=== PATIENT | male | born 1960 | race Caucasian/White ===

== ENCOUNTER → 2018-06-04 10:00 | Outpatient (CLI) | payer OTHER, SELFPAY ==
--- NOTE | 2018-06-04 10:45 | MRI_ITS ---
STUDY: MRI RIGHT SHOULDER REASON FOR EXAM: Right shoulder pain and decreased range of motion for 4 weeks, fall. TECHNIQUE: Standardized fat and water weighted pulse sequences were obtained in all 3 orthogonal planes. COMPARISON: None. FINDINGS: There is supraspinatus tendinosis and a full-thickness tear of the distal anterior supraspinatus tendon (T2 coronal images 12-14) measuring approximately 2.0 x 1.3 cm (length x width). There is mild infraspinatus tendinosis (T2 coronal image 7) without discrete tendon tear. There is a full-thickness tear of the subscapularis tendon (proton-density axial images 16, 17). Normal teres minor tendon. Normal supraspinatus muscle. Normal infraspinatus muscle. Normal subscapularis muscle. Normal teres minor muscle. There is a small glenohumeral joint effusion. There is a small cyst in the posterior aspect of the greater tuberosity. There is a tear with nonvisualization of the intracapsular long biceps tendon. Normal labrum. Normal capsulo- ligamentous complex. There is acromioclavicular arthrosis with undersurface osteophytes (T2 sagittal image 7). There is a Type II morphology (curved), with a neutral orientation. There is a small volume of subacromial-subdeltoid bursal fluid. Normal visualized coracohumeral and coracoacromial ligaments. Normal deltoid muscle. Normal trapezius muscle. MRI/Upper Ext Joint Only(Routine) IMPRESSION: Full-thickness tear and tendinosis of the supraspinatus tendon. Full-thickness tear of the subscapularis tendon. Mild infraspinatus tendinosis. Acromioclavicular arthrosis. Glenohumeral joint fluid communicating with the subacromial-subdeltoid bursa. Electronically Signed: Huan Connell MD at 11:50 EST Tel , Service support ,
== END ==
PROVIDERS: Family Provider Family Medicine; PCP Family Medicine; Referring Provider Family Medicine; Visit Provider Family Medicine
DX: M75.101 Unspecified rotator cuff tear or rupture of right shoulder, not specified as traumatic (principal)
CPT/HCPCS: 73221

== ENCOUNTER 2025-03-23 08:21 | Day surgery (SDC) | payer MEDICARE, SELFPAY ==
[2025-03-23] VITALS (7 sets, daily range): BP systolic 95–142; BP diastolic 63–91; PULSE 55–58; RESP 14–16; TEMP 36.1–36.4; O2SAT 95–99; BMI 26.4
[2025-03-23] MEDS: Lactated Ringers 1,000 ML 15 ML IV (08:51)
--- NOTE | 2025-03-23 08:55 | PRE.ANES_ITS ---
ASA Classification* ASA Classification ASA Classification: 2 Assessment & Plan Anesthesia* Anesthesia Assessment Anesthesia Assessment: Discussed sedation and/or anesthesia options, risks, benefits, and alternatives with patient/parents/legal guardian/POA. Questions invited. The patient/parents/legal guardian/POA seems to understand and agrees to proceed with anesthesia plan. Reviewed the physical assessment, medical history, allergy history and patient home medications list prior to surgery/procedure/anesthetic and documented any changes. Performed airway and anesthesia risk assessments. 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 When Was Last Pacemaker Check QUESTION #4 FULL TEXT: You/Your Family Experience fever (hyperthermia) with Anesthesia Last Oral Intake Last Oral intake: Last Oral Intake NPO since 07:30 03/23/25 08:37 Meds taken in AM with sips of water? Meds patient instructed to take am of surgery PONV PONV - deputy chief executive: PONV - deputy chief executive Female No 03/21/25 12:15 HX of Motion Sickness No 03/21/25 12:15 HX of N/V After Surgery Yes 03/21/25 12:15 Non-Smoker Yes 03/21/25 12:15 Duration of Surgery greater No 03/21/25 12:15 than 60 minutes Number of Risk Factors 2 03/21/25 12:15 PONV Score Moderate Risk 03/21/25 12:15 Height & Weight Height & Weight: Anesthesia: Height & Weight Height 5 ft 11 in 03/23/25 08:37 Weight: 85.9 kg 03/23/25 08:37 Body Mass Index (BMI) 26.4 03/23/25 08:37 Respiratory Assessment Respiratory Assessment - deputy chief executive: Respiratory Tract Infection Hx - deputy chief executive Hx Respiratory Tract Infection No 03/21/25 12:15 STOP Sleep Apnea STOP Sleep Apnea - deputy chief executive: STOP Sleep Apnea - deputy chief executive Hx Hypertension No 03/21/25 12:15 Hx Sleep Apnea No 03/21/25 12:15 CPAP BIPAP Do you snore loudly (louder No 03/21/25 12:15 than talking or can be heard Do you often feel tired/ No 03/21/25 12:15 fatigued/ sleepy during daytime? Has anyone observed you stop No 03/21/25 12:15 breathing during sleep? STOP Results Negative 03/21/25 12:15 QUESTION #5 FULL TEXT : Do you snore loudly (louder than talking or can be heard through closed doors)? 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 Specify any problems Hx of Preganancy in last 3 N/A 03/21/25 12:15 Months Nurse Filling Out Transfusion VCHRISTIN 03/21/25 12:15 & Questions: Date: 03/21/25 03/21/25 12:15 Time: 12:16 03/21/25 12:15 Patient unable to answer at this time (ie. confused, unrespo /Reproduction History /Reproductive History - deputy chief executive: /Reproductive Hx- deputy chief executive Hx Now No 03/21/25 12:15 Gestational Age (in weeks): EDC: Hx Hx Para Hx Section SAB No 03/21/25 12:15 Does the father of the baby or his family experience fever w Father of the baby Malignant Hypertension history comment Active Medications Active Medications: Current Medications Generic Name Dose Route Start Last Admin Trade Name Freq PRN Reason Stop Dose Admin Lactated Ringer's 1,000 mls @ 15 mls/hr 03/23/25 08:30 03/23/25 08:51 IV 15 mls/hr .Q48H CRISTHIAN Administration PFSH Medical History Wears dentures Cancer History of steroid therapy Arthritis Gastric reflux Non-smoker Asthma Leg cramps Primary osteoarthritis Asthma Polyarthritis GERD (gastroesophageal reflux disease) Erectile dysfunction due to arterial insufficiency Anxiety Left sided abdominal pain Mixed hyperlipidemia Elevated liver enzymes Hypercalcemia BPH (benign prostatic hyperplasia) [facility] (current) use of non-steroidal anti-inflammatories (nsaid) Positive FIT (fecal immunochemical test) H/O staphylococcal infection High cholesterol Diabetes mellitus Home Medications ?Medication ?Instructions ?Recorded ?Last Taken ?Type atorvastatin 40 mg tablet 40 mg PO QHS 06/10/18 Unknow n History fenofibrate 54 mg tablet 54 mg PO DAILY 06/10/18 Unkn own History metformin 1,000 mg tablet 1,000 mg PO BID 06/10/18 Unk nown History tamsulosin 0.4 mg capsule 0.4 mg PO DAILY 11/21/20 Unk nown History diclofenac sodium 75 mg 75 mg PO DAILY 02/06/23 Unkn own History tablet,delayed release tizanidine 4 mg tablet 4 - 8 mg PO Q8 PRN muscle sp asm 07/20/24 Unknown History empagliflozin 25 mg tablet 25 mg PO QDAY 02/17/2503/06 History (Jardiance) finasteride 5 mg tablet 5 mg PO QDAY 02/17/25 Unknow n History omeprazole 40 mg capsule,delayed 40 mg PO QDAY 5 Unknown History release sodium sul 1.479 gram-potas ch See Rx Instructions PO PER PKG DIR 02/17/25 Unknown Rx 0.188 gram-magnes sul 0.225 gram #24 tabs tablet (Sutab) omega 3 350 mg-dha 235 mg-epa 90 1 cap PO BID 03/21/25 03/19/25 History mg-fish oil 597 mg capsule,delay rel ([facility]-3) Allergy/AdvReac Type Severity Reaction Status Date / Time No Known Allergies Allergy Verified 03/21/25 12:06 Family History Father CAD (coronary artery disease) Mother Rheumatoid arthritis Surgical History H/O elbow surgery H/O repair of rotator cuff Social History Smoking Status: Never smoker alcohol intake: current alcohol intake frequency: holidays/special occasions only substance use type: does not use what type of physical activity do you participate in: walking Review of Systems (Anesthesia) ROS Narrative System reviewed and no additional complaints, except as documented.
--- NOTE | 2025-03-23 09:36 | PCM.HP.STD ---
HPI - General General Date of Admission: 03/23/25 Date of Service: 03/23/25 Chief Complaint: Screening colonoscopy HPI Narrative WILL CALIXTO, is a 64 M who presents [ Chief Complaint: Colonoscopy consultation for reported blood in stool The patient presents for first-time colonoscopy scheduling after being told there was a small amount of blood in the stool. Does not personally observe visible blood. Reports prior hemorrhoids but no current problems. Denies constipation and diarrhea. Denies taking blood thinners. No prior abdominal surgeries. Open to scheduling in March or whenever available. Prefers a pill-based bowel preparation (Sutab). Declines treatment of internal hemorrhoids during the procedure as there are no current symptoms. 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 (nsaid) Positive FIT (fecal immunochemical test) H/O staphylococcal infection High cholesterol Diabetes mellitus Home Medications ?Medication ?Instructions ?Recorded ?Last Taken ?Type atorvastatin 40 mg tablet 40 mg PO QHS 06/10/18 Unknown History fenofibrate 54 mg tablet 54 mg PO DAILY 06/10/18 Unknown History metformin 1,000 mg tablet 1,000 mg PO BID 06/10/18 Unknown History tamsulosin 0.4 mg capsule 0.4 mg PO DAILY 11/21/20 Unknown History diclofenac sodium 75 mg 75 mg PO DAILY 02/06/23 Unknown History tablet,delayed release tizanidine 4 mg tablet 4 - 8 mg PO Q8 PRN muscle spasm 07/20/24 Unknown History empagliflozin 25 mg tablet 25 mg PO QDAY 02/17/25 03/19/25 History (Jardiance) finasteride 5 mg tablet 5 mg PO QDAY 02/17/25 Unknown History omeprazole 40 mg capsule,delayed 40 mg PO QDAY 02/17/25 Unknown History release sodium sul 1.479 gram-potas ch See Rx Instructions PO PER PKG DIR 02/17/25 Unknown Rx 0.188 gram-magnes sul 0.225 gram #24 tabs tablet (Sutab) omega 3 350 mg-dha 235 mg-epa 90 1 cap PO BID 03/21/25 03/19/25 History mg-fish oil 597 mg capsule,delay rel ([place]-3) Allergy/AdvReac Type Severity Reaction Status Date / Time No Known Allergies Allergy Verified 03/21/25 12:06 Family History Father CAD (coronary artery disease) Mother Rheumatoid arthritis Surgical History H/O elbow surgery H/O repair of rotator cuff Social History Smoking Status: Never smoker alcohol intake: current alcohol intake frequency: holidays/special occasions only substance use type: does not use what type of physical activity do you participate in: walking ROS Constitutional Constitutional: Denies fatigue, fever(s), poor appetite, weight gain or weight loss Gastrointestinal Gastrointestinal: Denies belching, bloating, change in bowel habits, change in stool character, chewing difficulty, coffee ground emesis, constipation, cramping, diarrhea, dyspepsia, dysphagia, early satiety, excessive flatus, fecal incontinence, heartburn, hematemesis, hematochezia, hemorrhoids, loose stools, melena, nausea, odynophagia, rectal bleeding, tenesmus, vomiting or weight changes Patient's Goals Of Care . What would you like to achieve or improve as a result of your hospital stay?: none Vital Signs Vital Signs Vital Signs: 03/23/25 08:37 03/23/25 08:37 03/23/25 08:37 Temperature 97.3 F L Temperature Source Temporal Pulse Rate 57 L Respiratory Rate 16 Respiratory Pattern Normal Blood Pressure 142/91 H Blood Pressure Mean 108 Blood Pressure Source Monitor Blood Pressure Position Semi-Fowlers Blood Pressure Location Left Arm Baseline BP 142/91 Pulse Ox 99 Oxygen Delivery Method Room Air 03/23/25 08:57 Temperature 97.3 F L Temperature Source Pulse Rate 57 L Respiratory Rate 16 Respiratory Pattern Blood Pressure 142/91 H Blood Pressure Mean Blood Pressure Source Blood Pressure Position Blood Pressure Location Baseline BP Pulse Ox 99 Oxygen Delivery Method Room Air Weight Weight: 189 lb 6.033 oz Body Mass Index (BMI) 26.4 Physical Exam Const alert, oriented x3, no apparent distress and healthy appearing General Appearance: cooperative GI normal to inspection, nondistended, normoactive bowel sounds, soft to palpation, non-tender and non-distended Percussion: normal to percussion Rectal Exam: deferred Results Lab / Micro Data Labs: Laboratory Results - last 24 hr 03/23/25 08:39: POC Glucose 177 H Assessment & Plan Assessment/Plan (1) Encounter for screening colonoscopy: PLAN: Assessment and Plan Assessment and Plan (1) Encounter for screening colonoscopy: Status: Acute Plan: Rectal bleeding : Patient reports being told there was a small amount of blood in stool; no visible blood seen by patient; denies constipation or diarrhea; not on blood thinners. - Schedule colonoscopy. - Provide bowel preparation instructions including clear liquid diet the day before the procedure. - Use Sutab (all-pill) bowel prep per patient preference. History of hemorrhoids : History of hemorrhoids; no current problems reported. - Do not perform hemorrhoid treatment during colonoscopy as patient declined intervention. Health maintenance : First-time colonoscopy for screening and evaluation discussed, including procedure overview, anesthesia, potential polyp removal, and typical duration. - Proceed with colonoscopy scheduling. Follow-up : Proceed with arranging the procedure timing. - Schedule colonoscopy in March or at patient?s preferred time. Medications: New sod sulf-pot chloride-mag sulf 1.479-0.188- 0.225 gram (Sutab) PO PER PKG DIR 24 tabs 0RF
--- NOTE | 2025-03-23 10:10 | OP.PROVAT_ITS ---
03/23/2025 Darwin Flores Md Re : Colonoscopy procedure for Gaetano Hadley Dear Mark This procedure was performed on March. My impressions and recommendations are as follows: Impressions : - Preparation of the colon was poor. - Diverticulosis in the recto-sigmoid colon, in the sigmoid colon and in the descending colon. - Stool in the entire examined colon. - No specimens collected. Recommendations : - Discharge patient to home. - Resume previous diet. - Continue present medications. - Repeat colonoscopy (date not yet determined) because the bowel preparation was poor. My findings are described in the full procedure note, which is enclosed. If I can be of further assistance, please feel free to contact me at . Sincerely, Miki Andres, 03/23/2025 10:09:57 AM This report has been signed electronically.
--- NOTE | 2025-03-23 10:10 | OP.COLON_ITS ---
Patient Name: Gaetano Hadley Procedure Date: 03/23/2025 9:41 AM Date of : 1960 Age: 64 Procedure: Colonoscopy Indications: Screening for colorectal malignant neoplasm Providers: Miki Andres DO Referring MD: Darwin Flores Md Medicines: Monitored Anesthesia Care Patient Profile: This is a 64 year old male. Refer to note in patient chart for documentation of history and physical. Last Colonoscopy: none. The patient's first colonoscopy is today. Complications: No immediate complications. Procedure: Pre-Anesthesia Assessment: - Prior to the procedure, a History and Physical was performed, and patient medications and allergies were reviewed. The patient is competent. The risks and benefits of the procedure and the sedation options and risks were discussed with the patient. All questions were answered and informed consent was obtained. Patient identification and proposed procedure were verified by the physician in the pre-procedure area. Mental Status Examination: alert and oriented. Airway Examination: normal oropharyngeal airway and neck mobility. Respiratory Examination: clear to auscultation. CV Examination: normal. Prophylactic Antibiotics: The patient does not require prophylactic antibiotics. Prior Anticoagulants: The patient has taken no anticoagulant or antiplatelet agents except for NSAID medication. ASA Grade Assessment: II - A patient with mild systemic disease. After reviewing the risks and benefits, the patient was deemed in satisfactory condition to undergo the procedure. The anesthesia plan was to use monitored anesthesia care (MAC). Immediately prior to administration of medications, the patient was re-assessed for adequacy to receive sedatives. The heart rate, respiratory rate, oxygen saturations, blood pressure, adequacy of pulmonary ventilation, and response to care were monitored throughout the procedure. The physical status of the patient was re-assessed after the procedure. After I obtained informed consent, the scope was passed under direct vision. Throughout the procedure, the patient's blood pressure, pulse, and oxygen saturations were monitored continuously. The Colonoscope was introduced through the anus and advanced to the cecum, identified by appendiceal orifice and ileocecal valve. The colonoscopy was performed without difficulty. The patient tolerated the procedure well. The quality of the bowel preparation was poor. The ileocecal valve, appendiceal orifice, and rectum were photographed. Scope In: 9:52:17 AM Scope Withdrawal Time 0 hours 4 minutes 4 seconds Scope Out: 9:58:36 AM Total Procedure Duration Time 0 hours 6 minutes 19 seconds Findings: The perianal and digital rectal examinations were normal. Multiple small and large-mouthed diverticula were found in the recto-sigmoid colon, sigmoid colon and descending colon. Stool was found in the entire colon. Impression: - Preparation of the colon was poor. - Diverticulosis in the recto-sigmoid colon, in the sigmoid colon and in the descending colon. - Stool in the entire examined colon. - No specimens collected. Recommendation: - Discharge patient to home. - Resume previous diet. - Continue present medications. - Repeat colonoscopy (date not yet determined) because the bowel preparation was poor. Procedure Code(s): --- Professional --- G0121, Colorectal cancer screening; colonoscopy on individual not meeting criteria for high risk CPT copyright 2021 [employer]. All rights reserved. The codes documented in this report are preliminary and upon social worker school review may be revised to meet current compliance requirements. Miki Andres DO 03/23/2025 10:09:57 AM This report has been signed electronically. Number of Addenda: 0 Note Initiated On: 03/23/2025 9:41 AM
--- NOTE | 2025-03-23 10:10 | PCM.POST.ANE ---
Anesthesia: Postop Eval I Current Vital Signs Temperature: 97 F Pulse Rate: 57 Blood Pressure: 101/63 Respiratory Rate: 16 Pulse Ox: 97 Oxygen Delivery Method: Room Air Assessment Airway patent: Yes Spontaneous unlabored respirations: Yes Mental status: Asleep nausea: No Vomiting: No Anesthesia Complication: No Fluid Hydration Crystalloid volume administer (ml): 500 Total IV fluid infused: 500 Progress Note Anesthesia document: Postop Eval 1 completed: Yes
--- NOTE | 2025-03-23 12:49 | PCM.POSTANE2 ---
Anesthesia Postop Eval I Sum Postop Eval Completion status Anesthesia document: Postop Eval 1 completed: Yes Anesthesia Postop Eval I Summary Anesthesia Postop Eval I Summary: Anesthesia Postop Eval I: Assessment Summary Airway patent Yes 03/23/25 10:10 [email or web address] Spontaneous unlabored Yes 03/23/25 10:10 [email or web address] respirations Mental status Asleep 03/23/25 10:10 [email or web address] nausea No 03/23/25 10:10 [email or web address] Vomiting No 03/23/25 10:10 [email or web address] Anesthesia Postop Eval I: Fluid Summary Crystalloid volume administer 500 03/23/25 10:10 [email or web address] (ml) Colloids volume administered ( ml) Blood Product volume administered (ml) Total IV fluid infused 500 03/23/25 10:10 [email or web address] Anesthesia Postop Eval I: Summary Notes Anesthesia Complication No 03/23/25 10:10 [email or web address] Anesthesia Complication Comment: Post-operative progress note Anesthesia: Postop Eval II Evaluation Mental status: Awake and Calm Pain Level: 1 nausea: No Vomiting: No Complications Anesthesia Complication: No
== END 2025-03-23 10:39 | disposition home or self-care (01) ==
LOC: EN 08:23 → AC 09:10
PROVIDERS: PCP Family Medicine; Referring Provider Family Medicine; Visit Provider Internal Medicine Gastroenterology
PROC: 0DJD8ZZ Inspection of Lower Intestinal Tract, Via Natural or Artificial Opening Endoscopic (ICD-10-PCS; CPT 45378; principal; 2025-03-23 09:25)
DX: Z12.11 Encounter for screening for malignant neoplasm of colon (principal); E11.9 Type 2 diabetes mellitus without complications; K57.30 Diverticulosis of large intestine without perforation or abscess without bleeding; E78.2 Mixed hyperlipidemia; K21.9 Gastro-esophageal reflux disease without esophagitis; J45.909 Unspecified asthma, uncomplicated
CPT/HCPCS: G0121; 82962; J2405